=== PATIENT | male | born 1955 | race Caucasian/White ===

== ENCOUNTER 2016-03-20 12:39 | Emergency (ER) | payer MEDICARE ==
--- NOTE | 2016-03-20 13:05 | ED Physician Documentation ---
General Adult - HISTORIAN Historian: patient, other (family) - HPI Stated Complaint: Pain control Chief Complaint: General Adult Onset: days ago Timing: still present Severity: moderate Further Comments: yes (Pt is a 60 yo male with DMII and chronic foot pain, for which he has been getting apparently excessive doses of Dilaudid [place], who is no longer allowed to prescribe narcotic pain meds. Pt needs drug rehabilitation and has appointments arranged with Dr. Anne this week and with Dr. Madden next month. Pt has been having foot pain, weakness and diarrhea. Pt presents with elevated BP = 229/129. Pt did not take his HTN medication today.) - ROS CONST: weakness EYES/ENT: none CVS/RESP: none GI/: nausea MS/SKIN/LYMPH: none - PAST HX Past History: other (Anxiety, CAD, CHF, ID w stent, DM, HLD, HTN, narcotic pain med dependency) Surgeries/Procedures: cardiac stent Allergies/Adverse Reactions: Allergies Allergy/AdvReac Type Severity Reaction Status Date / Time Tetanus Vaccines & Toxoid Allergy Unknown Verified 06/24/14 22:55 seafood Allergy Severe unknown Uncoded 06/24/14 22:55 Home Medications: Ambulatory Orders Medication Instructions Recorded Pravastatin Sodium [Pravachol] 40 mg PO DAILY 06/24/14 traZODone HCL [Desyrel] 200 mg PO HS tablet 06/25/14 Alprazolam [Xanax] 1 mg PO BID 03/20/16 Glimepiride [Amaryl] 1 mg PO DAILY 03/20/16 Hydromorphone HCl [Dilaudid] 4 mg PO QID PRN 03/20/16 Lisinopril [Zestril] 40 mg PO DAILY 03/20/16 Ranolazine [Ranexa] 1,000 mg PO BID 03/20/16 - SOCIAL HX Smoking History: cigarettes - FAMILY HX Family History: No - VITAL SIGNS Vital Signs: Vital Signs Temp Pulse Resp BP Pulse Ox 170/113 06/25/14 09:06 - REVIEWED ASSESSMENTS Nursing Assessment Reviewed: Yes Vitals Reviewed: Yes Progress - Progress Progress: NS 1 L IVF Zofran 4 mg IV Lisinopril 40 mg po Clonidine 0.1 mg po Dilaudid 2 mg IV BP 229/129-->175/93 Rx Dilaudid 2 mg po q4h prn #15 f/u Dr. Anne later this week and Dr. Chacko next month as planned. General Adult Physical Exam - PHYSICAL EXAM GENERAL APPEARANCE: moderate distress EENT: eye inspection normal, pharynx normal NECK: normal inspection, supple RESPIRATORY: no resp distress, chest non-tender, breath sounds normal CVS: reg rate & rhythm, heart sounds normal ABDOMEN: soft, no organomegaly, normal bowel sounds BACK: normal inspection, no CVA tenderness SKIN: warm/dry, normal color EXTREMITIES: non-tender, normal range of motion, no evidence of injury NEURO: oriented X3, motor nml, other (peripheral neuropathy) Discharge Clincal Impression: Chronic pain Qualifiers: Chronic pain type: chronic pain syndrome Qualified Code(s): G89.4 - Chronic pain syndrome HTN (hypertension) Qualifiers: Hypertension type: essential hypertension Qualified Code(s): I10 - Essential ( primary) hypertension Referrals: Elías Anne MD [Primary Care Provider] - Home Medications: Ambulatory Orders Pravastatin Sodium [Pravachol] 40 mg PO DAILY 06/24/14 traZODone HCL [Desyrel] 200 mg PO HS tablet 06/25/14 Alprazolam [Xanax] 1 mg PO BID 03/20/16 Glimepiride [Amaryl] 1 mg PO DAILY 03/20/16 Hydromorphone HCl [Dilaudid] 4 mg PO QID PRN 03/20/16 Lisinopril [Zestril] 40 mg PO DAILY 03/20/16 Ranolazine [Ranexa] 1,000 mg PO BID 03/20/16 Condition: Stable Disposition: HOME, SELF-CARE Decision to Admit: NO Decision Time: 15:47
[2016-03-20] MEDS ORDERED: LISINOPRIL 20 MG TABLET ONE (13:31)
[2016-03-20] MEDS ORDERED: 0.9 % SODIUM CHLORIDE 1,000 ML IV ONE (13:49)
[2016-03-20] MEDS ORDERED: ONDANSETRON HCL/PF 4 MG/ 2ML VIAL IVP ONE (13:50)
[2016-03-20] MEDS ORDERED: LISINOPRIL 20 MG TABLET PO ONE (13:58)
[2016-03-20 14:14] LABS: AMPHETAMINE NEGATIVE ng/mL (<1000); BARBITURATES NEGATIVE ng/mL (<300); CANNABINOIDS NON NEGATIVE ng/mL (<50); COCAINE NEGATIVE ng/mL (<150); METHAMPHETAMINE NEGATIVE ng/mL (<1000); METHYLENEDIOXYMETHAMPHETAMINE NEGATIVE ng/mL (<500)
[2016-03-20] MEDS ORDERED: CloNIDine HCL 0.1 MG TABLET PO ONE (14:54)
[2016-03-20 14:55] LABS: BASOPHILS % 0.3 (0.0-1.5); EOSINOPHILS % 3.6 % (0.0-6.8); LYMPHOCYTES # 1.6 # k/uL (0.6-4.0); MEAN CORPUSCULAR HEMOGLOBIN 28.7 pg (28.0-34.0); MONOCYTES # 0.3 # k/uL (0.0-0.9); MONOCYTES % 4.9 % (0.0-11.0); NEUTROPHILS # 3.2 # k/uL (1.4-7.7)
[2016-03-20 15:13] LABS: eGFR (African) > 60; eGFR (Non-African) > 60
[2016-03-20] MEDS ORDERED: HYDROmorphone HCL/PF 2 MG/ML DISP.SYRIN IVP ONE (15:44)
[2016-03-20 16:04] VITALS: BP 175/93
[2016-03-21 05:57] LABS: APPEARANCE,URINE CLEAR (CLEAR); COLOR,URINE YELLOW (YELLOW); OCCULT BLOOD,URINE NEGATIVE (NEGATIVE); UROBILINOGEN URINE 0.2 Eu (0.2-1.0)
[2016-03-23 10:51] LABS: CANNABINOIDS CONFIRMATION >150 ng/mL (<15)
== END 2016-03-20 16:00 | disposition home or self-care (01) ==
LOC: ED 12:39
DX: G89.4 Chronic pain syndrome (principal); I10 Essential (primary) hypertension
CPT/HCPCS: 80053; 83880; 85025; G0477; J1170; J2405; J7030; 80346; 80349; 80377; 81002; 96361; 96374; 96375; 99283; G0480; G0482; S1016

== ENCOUNTER 2016-06-27 14:14 | Outpatient (CLI) | payer MEDICARE, MEDICAID ==
[2016-06-27 14:31] LABS: BASOPHILS % 0.3 (0.0-1.5); NEUTROPHILS # 3.2 # k/uL (1.4-7.7)
[2016-06-27 14:53] LABS: eGFR (African) > 60; eGFR (Non-African) 60
== END 2016-06-27 14:15 ==
LOC: LAB 14:14
PROVIDERS: ATTEND Family Medicine
DX: D64.9 Anemia, unspecified (principal); I10 Essential (primary) hypertension; I50.22 Chronic systolic (congestive) heart failure
CPT/HCPCS: 36415; 80053; 83880; 85025

== ENCOUNTER 2016-07-08 14:00 | Outpatient (CLI) | payer MEDICARE, MEDICAID ==
[2016-07-08 14:24] LABS: BASOPHILS % 0.4 (0.0-1.5); EOSINOPHILS % 12.4 % (0.0-6.8); MEAN CORPUSCULAR HEMOGLOBIN 29.3 pg (28.0-34.0); MEAN CORPUSCULAR VOLUME 94.1 fl (80.0-100.0); MONOCYTES % 3.7 % (0.0-11.0); NEUTROPHILS # 2.3 # k/uL (1.4-7.7)
== END 2016-07-08 14:02 ==
LOC: LAB 14:00
PROVIDERS: ATTEND Family Medicine
DX: D50.0 Iron deficiency anemia secondary to blood loss (chronic) (principal)
CPT/HCPCS: 36415; 85025

== ENCOUNTER 2016-08-17 12:38 | Outpatient (CLI) | payer MEDICARE, MEDICAID ==
[2016-08-17 12:45] LABS: BASOPHILS % 0.3 (0.0-1.5); EOSINOPHILS % 17.1 % (0.0-6.8); MEAN CORPUSCULAR HEMOGLOBIN 29.8 pg (28.0-34.0); MEAN CORPUSCULAR VOLUME 94.7 fl (80.0-100.0); MONOCYTES % 4.5 % (0.0-11.0); NEUTROPHILS # 2.3 # k/uL (1.4-7.7)
== END 2016-08-17 12:48 ==
LOC: LABRHC 12:38
PROVIDERS: ATTEND Family Medicine
DX: D64.9 Anemia, unspecified (principal)
CPT/HCPCS: 85025

== ENCOUNTER 2016-11-18 11:33 | Outpatient (CLI) | payer MEDICARE, OTHER ==
[2016-11-18 12:03] LABS: BASOPHILS % 0.8 (0.0-1.5); EOSINOPHILS % 9.3 % (0.0-6.8); MEAN CORPUSCULAR HEMOGLOBIN 31.1 pg (28.0-34.0); MEAN CORPUSCULAR VOLUME 94.1 fl (80.0-100.0); MONOCYTES % 5.3 % (0.0-11.0)
--- NOTE | 2016-11-18 15:00 | Diagnostic Imaging Report ---
TREY MUKHERJEE [facility] [address] [facility].[address] [address] Report Submission Date: Nov 18, 2016 12:26:17 PM CDT Patient Study Name: ALICE DODSON Date: Nov 18, 2016 11:47:55 AM CDT Modality Type: US Gender: M Description: US THYROID SOFT TISS HEAD/NCK : 53 Institution: [facility] Physician: TREY MUKHERJEE Examination: Ultrasound soft tissue History: Palpable nodules Comparison exams: None available Findings: Sonographic evaluation the right neck in the region of the palpable densities demonstrates to subcutaneous fluid collections. 1st measures 8.2 x 2.8 x 8.0 mm 2nd measures 3.3 x 2.5 x 4.1 mm. No other subcutaneous abnormality. Impression: Two sub centimeter subcutaneous nodules/cysts. Follows as warranted. Electronically signed on Nov 18, 2016 12:26:17 PM CDT by: Benedict REYEZ
== END 2016-11-18 11:34 ==
LOC: RAD 11:33
PROVIDERS: ATTEND Family Medicine
DX: R22.1 Localized swelling, mass and lump, neck (principal); E11.42 Type 2 diabetes mellitus with diabetic polyneuropathy; D64.9 Anemia, unspecified
CPT/HCPCS: 36415; 76536; 83036; 85025

== ENCOUNTER 2017-06-29 13:36 | Outpatient (CLI) | payer MEDICARE, MEDICAID ==
[2017-06-29 13:59] LABS: BASOPHILS % 0.3 (0.0-1.5); EOSINOPHILS % 6.2 % (0.0-6.8); MEAN CORPUSCULAR HEMOGLOBIN 32.1 pg (28.0-34.0); MEAN CORPUSCULAR VOLUME 97.7 fl (80.0-100.0); MONOCYTES % 3.3 % (0.0-11.0); NEUTROPHILS # 2.7 # k/uL (1.4-7.7)
[2017-06-29 14:10] LABS: eGFR (African) > 60; eGFR (Non-African) 59
--- NOTE | 2017-06-29 18:36 | Diagnostic Imaging Report ---
STEPHY CISNEROS [facility] [address] [facility] [address] [address] Report Submission Date: June 29, 2017 2:27:33 PM CDT Patient Study Name: ALICE DODSON Date: June 29, 2017 1:53:09 PM CDT Modality Type: DX Gender: M Description: CHEST : 53 Institution: [facility] Physician: STEPHY CISNEROS Examination: PA and lateral chest. History: Evaluate lung castro. CXR, SOA AND DIZZINESS FOR A FEW MONTHS, SMOKER ( Hx) Comparison exam: None provided. Findings: PA lateral chest demonstrate a normal cardiac and mediastinal silhouette. Vascular calcifications involving the aortic arch. Chronic interstitial changes. No focal infiltrate. No blunting of the costophrenic margins. Flattening of the diaphragm and lateral view. Left-sided cardiac pacemaker. Osseous structures are appropriate for age. Impression: Emphysematous/COPD changes. No acute pulmonary process. Electronically signed on June 29, 2017 2:27:33 PM CDT by: Benedict REYEZ
== END 2017-06-29 13:38 ==
LOC: LAB 13:36
PROVIDERS: ATTEND Physician Assistant
DX: R42 Dizziness and giddiness (principal); R53.83 Other fatigue; R06.02 Shortness of breath
CPT/HCPCS: 36415; 71046; 80053; 83880; 84439; 84443; 84481; 85025

== ENCOUNTER 2017-09-26 13:20 | Outpatient (CLI) | payer MEDICARE ==
--- NOTE | 2017-09-26 17:28 | Diagnostic Imaging Report ---
[facility] [address] [facility].[address] [address] Report Submission Date: Sep 26, 2017 3:59:14 PM CDT Patient Study Name: ALICE DODSON Date: Sep 26, 2017 1:57:46 PM CDT Modality Type: US Gender: M Description: : 53 Institution: [facility] Physician: TREY MUKHERJEE Examination: Ultrasound arterial History: Leg discomfort Comparison exams: None available Findings: Sonographic evaluation of the lower extremity arterial system from the groin to the distal extremities bilaterally demonstrates normal waveforms. Scattered nonocclusive plaquing. Impression: Scattered nonocclusive plaquing. No obstruction to hemodynamic flow Electronically signed on Sep 26, 2017 3:59:14 PM CDT by: Benedict REYEZ
--- NOTE | 2017-09-26 17:28 | Diagnostic Imaging Report ---
[facility] [address] [facility].[address] [address] Report Submission Date: Sep 26, 2017 3:24:11 PM CDT Patient Study Name: ALICE DODSON Date: Sep 26, 2017 2:38:29 PM CDT Modality Type: US Gender: M Description: : 53 Institution: [facility] Physician: TREY MUKHERJEE Examination: Ultrasound vein bilaterally History: Calf discomfort Findings: Sonographic evaluation of the lower extremity venous system from the groin to the popliteal fossa inclusive bilaterally. Normal compressibility. No luminal filling defect. Normal waveforms and response to augmentation. No popliteal region fluid collection. Impression: No evidence for deep venous thrombosis. Electronically signed on Sep 26, 2017 3:24:11 PM CDT by: Benedict REYEZ
== END 2017-09-26 13:23 ==
LOC: RAD 13:20
PROVIDERS: ATTEND Family Medicine
DX: E11.42 Type 2 diabetes mellitus with diabetic polyneuropathy (principal); I73.9 Peripheral vascular disease, unspecified; I87.8 Other specified disorders of veins
CPT/HCPCS: 36415; 83036; 93925; 93970

== ENCOUNTER 2017-11-03 13:45 | Emergency (ER) | payer MEDICARE ==
--- NOTE | 2017-11-03 14:17 | ED Physician Documentation ---
General Adult - HISTORIAN Historian: patient - HPI Stated Complaint: FALL Chief Complaint: General Adult Additional Information: Fell onto L arm and shoulder at 0500 yesterday. Had been to [place] and was changing clothes when he lost his balance. Thought he broke his neck at the time. Had numbness, tingling, cold sensation throughout R arm and hand at time of fall, now resolved. Has bruises on L forehead. R shoulder pain brings him to the ER. No other modifying factors or associated signs. Has seen eye doctor since the fall. - ROS CONST: no problems - PAST HX Past History: AMI, hypertension, other (defibrillator/pacemaker; lower leg neuropathy) Surgeries/Procedures: other (stents x 5) Allergies/Adverse Reactions: Allergies Allergy/AdvReac Type Severity Reaction Status Date / Time pregabalin [From Lyrica] Allergy Intermediate Muscle Pain Verified 11/03/17 14:01 Tetanus Vaccines and Toxoid Allergy Unknown Verified 11/03/17 14:01 [Tetanus Vaccines & Toxoid] seafood Allergy Severe unknown Uncoded 11/03/17 14:01 Home Medications: Ambulatory Orders Medication Instructions Recorded Pravastatin Sodium [Pravachol] 40 mg PO DAILY 06/24/14 traZODone HCL [Desyrel] 200 mg PO HS tablet 06/25/14 Alprazolam [Xanax] 1 mg PO BID 03/20/16 Glimepiride [Amaryl] 1 mg PO DAILY 03/20/16 Hydromorphone HCl [Dilaudid] 4 mg PO QID PRN 03/20/16 Lisinopril [Zestril] 40 mg PO DAILY 03/20/16 Ranolazine [Ranexa] 1,000 mg PO BID 03/20/16 - SOCIAL HX Smoking History: cigarettes (1 PPD) - FAMILY HX Family History: No (no signif) - VITAL SIGNS Vital Signs: Vital Signs Temp Pulse Resp BP Pulse Ox 97.6 F 75 20 190/119 95 11/03/17 13:56 11/03/17 13:56 11/03/17 13:56 11/03/17 13:56 11/03/17 13:56 - REVIEWED ASSESSMENTS Nursing Assessment Reviewed: Yes Vitals Reviewed: Yes Progress - Progress Progress: Report Submission Date: Nov 03, 2017 2:46:40 PM CDT Patient Study Name: ALICE DODSON Date: Nov 03, 2017 2:07:07 PM CDT Modality Type: DX Gender: M Description: SHOULDER : 53 Institution: [facility] Physician: KP HERNANDEZ Right shoulder History: Pain. S/p fall yesterday Three views of the right shoulder demonstrate movement of the humeral head into internal and external rotation without evidence for acute fracture or dislocation. The acromioclavicular joint is intact. Impression: No evidence for acute fracture or dislocation. Electronically signed on Nov 03, 2017 2:46:40 PM CDT by: Adriana Mclaughlin Report Submission Date: Nov 03, 2017 2:49:37 PM CDT Patient Study Name: ALICE DODSON R Date: Nov 03, 2017 2:17:01 PM CDT Modality Type: DX Gender: M Description: SPINE : 53 Institution: [facility] Physician: KP HERNANDEZ Cervical spine History: Neck pain AP, lateral and swimmer's views of the cervical spine were obtained which demon strate the dens to be intact. The lateral masses of C1 and 2 are aligned. On the lateral radiographs, the C7 vertebral body and the C7/T1 disc level is limitedly visualized. There is grossly normal alignment. Otherwise, vertebral body height and intervertebral disc space height is maintained. The C6 and C7 spinous processes cannot be visualized either. Impression: Limited assessment of the lower cervical spine. If there is clinical concern for fracture, CT would be recommended. Electronically signed on Nov 03, 2017 2:49:37 PM CDT by: Adriana Mclaughlin Report Submission Date: Nov 03, 2017 3:56:34 PM CDT Patient Study Name: ALICE DODSON R Date: Nov 03, 2017 3:22:04 PM CDT Modality Type: CT Gender: M Description: CT C-SPINE W/O CONTRAS : 53 Institution: [facility] Physician: KP HERNANDEZ CT cervical spine History: Neck pain. Status post fall. Unable to visualize the lower cervical spine by plain radiograph Technique: The patient is asymmetrically positioned in the gantry. The dens is intact. The lateral masses of C1 and 2 are aligned. There is an acute, mildly distracted but nondisplaced fracture involving the right C7 lamina and extending into the right inferior articular facet of the C6/7 level. No left-sided fractures are noted. The fracture site involving the proximal aspect of the lamina is distracted by approximately 2 mm. Atherosclerotic calcifications are present at the carotid bifurcations, left greater than right. Lung apices are clear. C2/3: The neural foramina are patent and there is no central stenosis. C3/4: There is mild posterior disc bulging. Secondary to facet arthropathy and uncovertebral joint hypertrophy, there is moderate to severe right foraminal narrowing. C4/5: Secondary to facet arthropathy and uncovertebral joint hypertrophy, there is moderate to severe right foraminal narrowing. C5/6: There is no central stenosis or foraminal narrowing. C6/7: There is no central stenosis or foraminal narrowing. C7/T1: Unremarkable. Impression: The patient is asymmetrically positioned within the gantry. There is an acute, mildly distracted but nondisplaced fracture involving the right C7 lamina and extending into the inferior articular facet on the right at the C6/7 level. Please see body of report with regard to degenerative findings by level. Atherosclerotic findings at the carotid bifurcations, consider follow-up nonemergent carotid duplex. Electronically signed on Nov 03, 2017 3:56:34 PM CDT by: Adriana Mclaughlin [id number], pt discussed with Dr. Carpenter, neurosurgeon at [place]. Pt to wear pink [place] collar at all times. Give him script for Miama J collar to be custom made. He will then wear [place] J collar except to bathe when he will again wear pink [place]. FU with Dr. Carpenter in one week. ED Results Lab/Radiology - Orders Orders: ED Orders Category Date Time Status CERVICAL SPINE STANDARD VIEWS [C SPINE 2 OR 3 VIEWS] [ Exams 11/03/17 Ordered RAD] Stat SHOULDER 2 VIEWS OR MORE [RAD] Stat Exams 11/03/17 Ordered General Adult Physical Exam - PHYSICAL EXAM GENERAL APPEARANCE: mild distress EENT: eye inspection normal, ENT inspection normal (poor dentition) NECK: normal inspection, supple, other (muscle tension R>L) RESPIRATORY: breath sounds normal (decreased throughout) CVS: reg rate & rhythm, heart sounds normal BACK: normal inspection SKIN: warm/dry, normal color (except ankles and feet dusky purple) EXTREMITIES: other (bandages L elbow. antalgic gait) NEURO: cognition normal Discharge Clincal Impression: Cervical vertebral closed fracture Qualifiers: Encounter type: initial encounter Cervical vertebra fracture level: C7 Fracture morphology: other fracture Fracture alignment: nondisplaced Qualified Code(s): S12.691A - Other nondisplaced fracture of seventh cervical vertebra, initial encounter for closed fracture Referrals: Elías Anne MD [Primary Care Provider] - 2 Days Additional Instructions: Make an appointment to see Dr. Anne in the next 2-3 days to review your blood pressure medications. Make an appointment to see Dr. Carpenter in a week. His phone number is [phone]. Wear the pink [place] collar 24 hours a day until the [place] collar is fashioned for you. I have given you phone numbers for three orthotics practitioners in [place]. Choose one of them and take your prescription for a [place] J collar to them. Return to the ER with numbness or tingling. Condition: Fair Disposition: 01 HOME, SELF-CARE Decision to Admit: NO Decision Time: 17:40
[2017-11-03 17:47] VITALS: BP 188/104
--- NOTE | 2017-11-03 18:34 | Diagnostic Imaging Report ---
KP HERNANDEZ [facility] [address] [facility] [address] [address] Report Submission Date: Nov 03, 2017 2:49:37 PM CDT Patient Study Name: ALICE DODSON Date: Nov 03, 2017 2:17:01 PM CDT Modality Type: DX Gender: M Description: SPINE : 53 Institution: [facility] Physician: KP HERNANDEZ Cervical spine History: Neck pain AP, lateral and swimmer's views of the cervical spine were obtained which demonstrate the dens to be intact. The lateral masses of C1 and 2 are aligned. On the lateral radiographs, the C7 vertebral body and the C7/T1 disc level is limitedly visualized. There is grossly normal alignment. Otherwise, vertebral body height and intervertebral disc space height is maintained. The C6 and C7 spinous processes cannot be visualized either. Impression: Limited assessment of the lower cervical spine. If there is clinical concern for fracture, CT would be recommended. Electronically signed on Nov 03, 2017 2:49:37 PM CDT by: Adriana REYEZ
--- NOTE | 2017-11-03 18:34 | Diagnostic Imaging Report ---
KP HERNANDEZ [facility] [address] [facility] [address] [address] Report Submission Date: Nov 03, 2017 2:46:40 PM CDT Patient Study Name: ALICE DODSON Date: Nov 03, 2017 2:07:07 PM CDT Modality Type: DX Gender: M Description: SHOULDER : 53 Institution: [facility] Physician: KP HERNANDEZ Right shoulder History: Pain. S/p fall yesterday Three views of the right shoulder demonstrate movement of the humeral head into internal and external rotation without evidence for acute fracture or dislocation. The acromioclavicular joint is intact. Impression: No evidence for acute fracture or dislocation. Electronically signed on Nov 03, 2017 2:46:40 PM CDT by: Adriana REYEZ
--- NOTE | 2017-11-03 18:36 | Diagnostic Imaging Report ---
KP HERNANDEZ [facility] [address] [facility] [address] [place], [place]. [address] Report Submission Date: Nov 03, 2017 3:56:34 PM CDT Patient Study Name: ALICE DODSON Date: Nov 03, 2017 3:22:04 PM CDT Modality Type: CT Gender: M Description: CT C-SPINE W/O CONTRAS : 53 Institution: [facility] Physician: KP HERNANDEZ CT cervical spine History: Neck pain. Status post fall. Unable to visualize the lower cervical spine by plain radiograph Technique: The patient is asymmetrically positioned in the gantry. The dens is intact. The lateral masses of C1 and 2 are aligned. There is an acute, mildly distracted but nondisplaced fracture involving the right C7 lamina and extending into the right inferior articular facet of the C6/7 level. No left-sided fractures are noted. The fracture site involving the proximal aspect of the lamina is distracted by approximately 2 mm. Atherosclerotic calcifications are present at the carotid bifurcations, left greater than right. Lung apices are clear. C2/3: The neural foramina are patent and there is no central stenosis. C3/4: There is mild posterior disc bulging. Secondary to facet arthropathy and uncovertebral joint hypertrophy, there is moderate to severe right foraminal narrowing. C4/5: Secondary to facet arthropathy and uncovertebral joint hypertrophy, there is moderate to severe right foraminal narrowing. C5/6: There is no central stenosis or foraminal narrowing. C6/7: There is no central stenosis or foraminal narrowing. C7/T1: Unremarkable. Impression: The patient is asymmetrically positioned within the gantry. There is an acute, mildly distracted but nondisplaced fracture involving the right C7 lamina and extending into the inferior articular facet on the right at the C6/7 level. Please see body of report with regard to degenerative findings by level. Atherosclerotic findings at the carotid bifurcations, consider follow-up nonemergent carotid duplex. Electronically signed on Nov 03, 2017 3:56:34 PM CDT by: Adriana REYEZ
== END 2017-11-03 17:53 | disposition home or self-care (01) ==
LOC: ED 13:45
DX: S12.691A Other nondisplaced fracture of seventh cervical vertebra, initial encounter for closed fracture (principal); W19.XXXA Unspecified fall, initial encounter; Y92.013 Bedroom of single-family (private) house as the place of occurrence of the external cause; Y93.9 Activity, unspecified; Y99.9 Unspecified external cause status
CPT/HCPCS: 72040; 72125; 73030; 99284

== ENCOUNTER 2018-01-18 12:34 | Inpatient (IN) | payer MEDICARE ==
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
[2018-01-18 13:45] LABS: BASOPHILS % 0.3 (0.0-1.5); EOSINOPHILS % 2.5 % (0.0-6.8); MEAN CORPUSCULAR HEMOGLOBIN 30.9 pg (28.0-34.0); MONOCYTES % 4.1 % (0.0-11.0); NEUTROPHILS # 9.7 # k/uL (1.4-7.7)
[2018-01-18 14:27] LABS: eGFR (Non-African) > 60
--- NOTE | 2018-01-18 15:21 | Diagnostic Imaging Report ---
CHRISTY RODRÍGUEZ [facility] [address] [facility] [address] [place], [place]. [address] Report Submission Date: Jan 18, 2018 3:12:29 PM VARNISHING MACHINE OPERATOR Patient Study Name: ALICE DODSON Date: Jan 18, 2018 1:58:17 PM VARNISHING MACHINE OPERATOR Modality Type: CT Gender: M Description: CT C-SPINE W/O CONTRAS : 53 Institution: [facility] Physician: CHRISTY RODRÍGUEZ Computed tomography cervical spine without contrast History: Neck pain after flipping tractor Findings: Transverse cervical spine sections are obtained without contrast revealing carotid atherosclerotic calcification, transvenous pacemaker, and layering right pleural effusion. A right anterior 2nd rib fracture is partially visualized on the final image. Degenerative disc disease is observed primarily at C4-5 and C5-6. A nondisplaced right C7 superior articular process fracture is observed. Minimal C7-T1 anterolisthesis is present. Impression: 1. Right 2nd rib fracture is partially visualized. 2. Nondisplaced right C7 superior articular process fracture. 3. Cervical spondylosis. 4. Right pleural effusion. Electronically signed on Jan 18, 2018 3:12:29 PM VARNISHING MACHINE OPERATOR by: Kenneth REYEZ
--- NOTE | 2018-01-18 15:21 | Diagnostic Imaging Report ---
CHRISTY RODRÍGUEZ [facility] [address] [facility] [address] [place], [place]. [address] Report Submission Date: Jan 18, 2018 3:09:22 PM ELDERLY COMPANION Patient Study Name: ALICE DODSON Date: Jan 18, 2018 1:55:06 PM ELDERLY COMPANION Modality Type: CT Gender: M Description: CT BRAIN W/O CONTRAST : 53 Institution: [facility] Physician: CHRISTY RODRÍGUEZ Computed tomography head without contrast History: Headache after flipping tractor Findings: Transverse brain sections are obtained without contrast revealing mild global brain atrophy and mild chronic small vessel ischemic gliosis in periventricular white matter. Pink-white differentiation is intact. There is no intracranial hemorrhage or skull fracture. Right parietal scalp contusion is observed. Impression: 1. Brain atrophy and chronic small vessel ischemic gliosis in periventricular white matter. 2. Right scalp contusion. Electronically signed on Jan 18, 2018 3:09:22 PM ELDERLY COMPANION by: Kenneth REYEZ
--- NOTE | 2018-01-18 15:22 | Diagnostic Imaging Report ---
CHRISTY RODRÍGUEZ [facility] [place] [facility] [address] [facility] [address] [address] Report Submission Date: Jan 18, 2018 3:12:06 PM AUTO HAULAWAY DRIVER Patient Study Name: ALICE DODSON Date: Jan 18, 2018 2:04:48 PM AUTO HAULAWAY DRIVER Modality Type: DX Gender: M Description: LOWER EXTREMITY : 53 Institution: [facility] [place] [facility] Physician: CHRISTY RODRÍGUEZ HISTORY: 62-year-old male with left knee pain after injury COMPARISON: None available. TECHNIQUE: 3 views of the left knee were performed. FINDINGS: No fracture or significant joint space narrowing about the left knee. No definite effusion. There is evidence of soft tissue injury along the medial aspect of the left distal thigh. There are atherosclerotic calcifications of the left femoral artery. IMPRESSION: No fracture or acute osseous abnormality of the left knee. Electronically signed on Jan 18, 2018 3:12:06 PM AUTO HAULAWAY DRIVER by: Abhilash REYEZ
--- NOTE | 2018-01-18 15:22 | Diagnostic Imaging Report ---
CHRISTY RODRÍGUEZ [facility] [address] [facility] [address] [place], [place]. [address] Report Submission Date: Jan 18, 2018 3:18:19 PM DECATING MACHINE OPERATOR Patient Study Name: ALICE DODSON Date: Jan 18, 2018 2:01:51 PM DECATING MACHINE OPERATOR Modality Type: CT\SR Gender: M Description: CT CHEST W/O CONTRAST : 53 Institution: [facility] Physician: CHRISTY RODRÍGUEZ Computed tomography chest without contrast History: Pain after flipping tractor Findings: Transverse chest sections are obtained without contrast revealing an acute minimally displaced right anterior 2nd rib fracture. A healing left lateral 7th rib fracture and acute nondisplaced left lateral 8th rib fracture are observed. A transvenous pacemaker is present. Mild T6 and T7 compression deformities are probably chronic. Small to moderate right and small left pleural effusions are observed. There is moderate volume loss in the right middle lobe and right middle lobe. Minimal left lower lobe atelectasis is present. An indeterminate posterior segment left upper lobe nodule measures 8 mm. There is no pneumothorax. A 4 cm descending aortic aneurysm is observed. The liver is nodular. Gallstones are present. Mild right hydronephrosis is observed. Impression: 1. 8 mm indeterminate left upper lobe nodule. Recommend PET-CT follow-up. 2. Right larger than left pleural effusions and right greater than left basilar atelectasis. 3. Acute right 2nd and left 8th rib fractures. 4. Mild T6 and T7 compression deformities are probably chronic. 5. Mild right hydronephrosis of uncertain etiology. Recommend nonemergent computed tomography abdomen pelvis without and with contrast. 6. 4 cm descending aortic aneurysm. 7. Cirrhosis. 8. Cholelithiasis. 9. Pacemaker. Electronically signed on Jan 18, 2018 3:18:19 PM DECATING MACHINE OPERATOR by: Kenneth REYEZ
[2018-01-18] MEDS ORDERED: CloNIDine HCL 0.1 MG TABLET PO ONE (15:39)
[2018-01-18] MEDS ORDERED: MORPHINE SULFATE 4 MG/ML PREFILLED SYR IVP ONE (15:39)
[2018-01-18] MEDS ORDERED: IPRATROPIUM/ALBUTEROL SULFATE 3 ML AMPUL.NEB NEB ONE (15:39)
[2018-01-18] MEDS ORDERED: MORPHINE SULFATE 2 MG/ML VIAL IVP ONE (16:32)
[2018-01-18] MEDS ORDERED: FUROSEMIDE 40 MG/4 ML VIAL IVP SCH (17:00)
[2018-01-18 17:09] VITALS: BMI 31.1
[2018-01-18] MEDS: LISINOPRIL 20 MG TABLET PO SCH (17:24)
[2018-01-18] MEDS: IPRATROPIUM/ALBUTEROL SULFATE 3 ML AMPUL.NEB NEB SCH ×2 (18:11→22:27)
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
[2018-01-18] MEDS ORDERED: ACETAMINOPHEN 325 MG TABLET PO PRN (19:12)
[2018-01-18] MEDS ORDERED: MORPHINE SULFATE 30 MG PO SCH (20:00)
[2018-01-18] MEDS: CARVEDILOL 12.5 MG TABLET PO SCH (20:24)
[2018-01-18] MEDS: NICOTINE 14mg PATCH.TD24 TD SCH (20:24)
[2018-01-18] MEDS: SALINE FLUSH 10 ML DISP.SYRIN IV SCH (20:25)
[2018-01-18] MEDS: ALPRAZOLAM 0.5 MG TABLET PO SCH (20:25)
[2018-01-18] MEDS ORDERED: SIMVASTATIN 40 MG TABLET PO SCH (21:00)
[2018-01-18] MEDS: MORPHINE SULFATE 4 MG/ML PREFILLED SYR IVP PRN (21:58)
[2018-01-18] MEDS: MORPHINE SULFATE 15 MG TABLET PO SCH (22:19)
[2018-01-19] MEDS ORDERED: MORPHINE SULFATE 2 MG/ML VIAL ONE ×2 (01:57→07:17)
[2018-01-19] MEDS: IPRATROPIUM/ALBUTEROL SULFATE 3 ML AMPUL.NEB NEB SCH ×3 (02:06→10:41)
[2018-01-19] MEDS: MORPHINE SULFATE 4 MG/ML PREFILLED SYR IVP PRN ×2 (02:07→07:20)
[2018-01-19] MEDS ORDERED: GLIMEPIRIDE 2 MG TABLET PO SCH (07:30)
[2018-01-19 07:39] LABS: COLOR,URINE AMBER (YELLOW)
[2018-01-19 07:40] LABS: APPEARANCE,URINE CLEAR (CLEAR); OCCULT BLOOD,URINE 1+ (NEGATIVE); PH URINE 6.5 (5.0 - 8.0)
[2018-01-19] MEDS: LISINOPRIL 20 MG TABLET PO SCH (07:43)
[2018-01-19] MEDS: CARVEDILOL 12.5 MG TABLET PO SCH (07:44)
[2018-01-19] MEDS: ALPRAZOLAM 0.5 MG TABLET PO SCH (07:44)
[2018-01-19] MEDS: SALINE FLUSH 10 ML DISP.SYRIN IV SCH (07:46)
[2018-01-19] MEDS: NICOTINE 14mg PATCH.TD24 TD SCH (07:56)
[2018-01-19] MEDS ORDERED: ASPIRIN 325 MG TABLET PO SCH (09:00)
[2018-01-19] MEDS ORDERED: POTASSIUM CHLORIDE 10 MEQ TABLET.ER PO SCH (09:00)
[2018-01-19 10:04] VITALS: BP 134/78
[2018-01-19] MEDS: ISOSORBIDE MONONITRATE 30 MG TAB.ER.24H PO SCH ×2 (10:41→10:45)
[2018-01-19] MEDS: MORPHINE SULFATE 15 MG TABLET PO SCH (10:46)
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
== END 2018-01-19 10:45 | disposition home or self-care (01) | DRG 313 ==
LOC: ED 12:34 → SOUTH 15:40
PROVIDERS: ADMIT Family Medicine; ATTEND Family Medicine
DX: R07.89 Other chest pain (principal); E11.51 Type 2 diabetes mellitus with diabetic peripheral angiopathy without gangrene; I48.91 Unspecified atrial fibrillation; I10 Essential (primary) hypertension; M25.562 Pain in left knee; G89.4 Chronic pain syndrome; W31.89XA Contact with other specified machinery, initial encounter; Y93.89 Activity, other specified; Y92.89 Other specified places as the place of occurrence of the external cause; Z79.4 Long term (current) use of insulin
CPT/HCPCS: 70450; 71250; 72125; 73562; 80053; 81002; 83880; 84484; 85025; 85610; 93005; A9270; J1940; J2270; 99222; 99238; 99285; S1016

== ENCOUNTER 2018-04-20 13:45 | Outpatient (CLI) | payer MEDICARE ==
[2018-04-20 17:31] LABS: MEAN CORPUSCULAR HEMOGLOBIN 30.2 pg (28.0-34.0)
[2018-04-20 17:32] LABS: BASOPHILS % 0.5 (0.0-1.5); NEUTROPHILS # 4.2 # k/uL (1.4-7.7)
[2018-04-20 18:18] LABS: eGFR (Non-African) > 60
== END 2018-04-20 14:00 ==
LOC: LABRHC 13:45
PROVIDERS: ATTEND Family Medicine
DX: I10 Essential (primary) hypertension (principal); E11.42 Type 2 diabetes mellitus with diabetic polyneuropathy; Z79.4 Long term (current) use of insulin
CPT/HCPCS: 36415; 80053; 83036; 85025

== ENCOUNTER 2018-07-09 14:03 | Outpatient (CLI) | payer MEDICARE | END 2018-07-09 14:05 | LOC: LABRHC 14:03 | PROVIDERS: ATTEND Family Medicine | DX: N39.0 Urinary tract infection, site not specified (principal); B96.20 Unspecified Escherichia coli [E. coli] as the cause of diseases classified elsewhere | CPT/HCPCS: 87086 ==

== ENCOUNTER 2018-09-17 16:45 | Outpatient (CLI) | payer MEDICARE | END 2018-09-17 16:47 | LOC: LABRHC 16:45 | PROVIDERS: ATTEND Family Medicine | DX: N39.0 Urinary tract infection, site not specified (principal); B96.20 Unspecified Escherichia coli [E. coli] as the cause of diseases classified elsewhere | CPT/HCPCS: 87086; 87186 ==

== ENCOUNTER 2018-10-19 18:24 | Outpatient (CLI) | payer MEDICARE | END 2018-10-19 18:26 | LOC: LABRHC 18:24 | PROVIDERS: ATTEND Family Medicine | DX: N39.0 Urinary tract infection, site not specified (principal) | CPT/HCPCS: 87086; 87186 ==

== ENCOUNTER 2018-12-03 14:35 | Outpatient (CLI) | payer MEDICARE ==
[2018-12-13 08:50] LABS: A1C 5.8 % (<5.7); eGFR (Non-African) 45
[2018-12-13 08:51] LABS: BASOPHILS % 0.3 % (0.0-1.5); NEUTROPHILS # 3.1 # k/uL (1.4-7.7)
--- NOTE | 2018-12-25 14:12 | Diagnostic Imaging Report ---
TREY MUKHERJEE [facility] [address] [facility] [address] [address] Report Submission Date: Dec 03, 2018 3:47:00 PM CDT Patient Study Name: ALICE DODSON Date: Dec 03, 2018 3:02:08 PM CDT Modality Type: DX Gender: M Description: CHEST 2VIEW : 53 Institution: [facility] Physician: TREY MUKHERJEE Exam: AP chest. History: Exertion ule DISI a. The examination is correlated with a CT of the thorax performed on January 18, 2018. A cardiac pacemaker is in position over the left hemithorax with leads in the anticipated right atrium and right ventricle. Diminished yet persistent right lower lobe infiltrates and pleural effusions are noted since the CT. Left lung is clear. Heart is normal with atherosclerotic plaques seen in the aorta. No other bony abnormalities are identified. Impression: Diminished yet persistent right lower lobe infiltrates and pleural effusions. Electronically signed on Dec 03, 2018 3:47:00 PM CDT by: Collin REYEZ
== END 2018-12-03 14:45 ==
LOC: LAB 14:35
PROVIDERS: ATTEND Family Medicine
DX: I10 Essential (primary) hypertension (principal); E11.9 Type 2 diabetes mellitus without complications; R06.09 Other forms of dyspnea
CPT/HCPCS: 36415; 71020; 71046; 80053; 83036; 85025